=== PATIENT | male | born 1995 | race Caucasian/White ===

== ENCOUNTER → 2021-01-04 | Outpatient (CLI) | payer OTHER ==
[~2021-01-04] MED LIST: ALBU90OI INH; AZIT250 PO; BENZ100A PO; CEPH250SUA PO; CEPH500 PO; CETI10 PO; CODACE30 PO; Crutch1 EACH MISC; DIPH50 PO; ERYT500 PO; HYDACE5 PO; HYDHOMSY PO; METPRE4DP PO; PRED20 PO; Percocet 10-321 EACH PO; Percocet 5-3251 EACH PO; RXHYDACE PO; SULTRIDS PO; Zithromax200 MG/5 M PO
== END | disposition home or self-care (01) ==
LOC: LAB SHORT 12:47 → LAB 12:47
DX: S99.921A Unspecified injury of right foot, initial encounter (principal)
CPT/HCPCS: 84550